=== PATIENT | male | born 1985 | race Caucasian/White ===

== ENCOUNTER 2016-11-22 12:20 | Emergency (ER) | payer SELFPAY | END 2016-11-22 13:48 | disposition home or self-care (01) | DX: L03.211 Cellulitis of face (principal); F17.210 Nicotine dependence, cigarettes, uncomplicated; Z88.0 Allergy status to penicillin; Z88.1 Allergy status to other antibiotic agents ==

== ENCOUNTER 2017-01-13 22:05 | Emergency (ER) | payer SELFPAY ==
--- NOTE | 2017-01-17 11:58 | ER ---
ADMIT: 01/13/2017 RM/LOC: ER [facility] MR#: [id number] [address] [id number] [address] [place] [address] Emergency Room Report SEX: M AGE: 31 : 1985 DATE: 01/13/2017 SUBJECTIVE: The patient is a 31-year-old male with a past medical history of Crohn disease and chronic low back pain, without any incident or trauma that he could recall and says that he has chronic severe back pain, which is intermittent and is not positional in his mid lower back and states that the last day he also had increased pain. The patient denies any saddle anesthesia, new weakness or numbness, or urinary or stool incontinence or retention. The patient states pain is [id number]-[id number] and radiates to the left posterior thigh, which is very similar to the previous pains. The patient denies any recent trauma. PHYSICAL EXAMINATION: VITAL SIGNS: The patient was in [id number]-htgyhlmv distress. Gait was normal. HEAD AND NECK: Normal. NEURO: Grossly normal. CHEST: Clear bilaterally. HEART: Normal heart sounds. ABDOMEN: Soft. Motor and sensory and the rest of the neuro exam is completely normal. The patient can walk on tiptoes and on heels without difficulty. Rest of the physical exam is also negative and noncontributory. The patient had no midline tenderness or step-offs. Pain was controlled with Percocet in the ER. The patient has no focal deficit or other indications of an acute emergent nerve entrapment. The patient was discharged to home with few Percocet and advised on taking Motrin in between and use Percocet for breakthrough pain. Advised on very mild stretching as tolerated and follow up with the primary doctor as soon as possible. The patient agreed with the plan and was discharged to home. Alexey Macias MD/ isamar JOB #: [id number] CC: Alexey Macias MD, Attending Physician Shane Alexander MD, Family Physician
== END 2017-01-13 22:59 | disposition home or self-care (01) ==
LOC: ER 22:05
DX: M54.5 Low back pain (principal); G89.29 Other chronic pain; Z88.1 Allergy status to other antibiotic agents; Z88.8 Allergy status to other drugs, medicaments and biological substances